=== PATIENT | female | born 1955 | race Caucasian/White ===

== ENCOUNTER 2016-12-19 18:02 | Emergency (ER) | payer OTHER ==
[~2016-12-19] VITALS: Ht 165.1 cm; Wt 64.8 kg
[~2016-12-19 18:02] MED LIST: DSY50 PO; FOLI1TAB7 PO; KLN5 PO; MRLP17 PO; MULT-506 PO; PARO30TA5 PO; THIA100T11 PO
[2016-12-19 18:09] VITALS: TEMP 36.9; Ht 165.1 cm; Wt 64.8 kg
[2016-12-19 18:51] LABS: URINE APPEARANCE CLEAR (CLEAR); URINE BILIRUBIN NEG (NEG); URINE COLOR YELLOW; URINE NITRITE NEG (NEG); URINE PH 6.5 (4.5-7.5); URINE SPECIFIC GRAVITY 1.011 (1.000-1.030); UROBILINOGEN NEG (NEG)
[2016-12-19 18:59] LABS: MANUAL MICROSCOPIC REQUIRED? YES; REVIEW REQ? NO
[2016-12-19 19:04] LABS: URINE BACTERIA NEG (NEG); URINE RBC 0-4 /hpf (0-4)
[2016-12-19 19:09] LABS: BENZODIAZEPINE, URINE NEG (NEG); COCAINE,URINE NEG (NEG); PHENCYCLIDINE, URINE NEG (NEG)
[2016-12-19 19:16] LABS: HEMATOCRIT 41.4 % (37-47); MEAN CELL VOLUME 83.5 fL (80-100); MEAN CORPUSCULAR HEMOGLOBIN 30.8 pg (25-34); MEAN PLATELET VOLUME 9.1 fL (7.4-10.4); PLATELET COUNT 281 K/uL (130-400); RED BLOOD COUNT 4.96 M/uL (4.2-5.4); WHITE BLOOD COUNT 10.85 K/uL (4.8-10.8)
[2016-12-19 19:35] LABS: BUN/CREATININE RATIO 5.1 (10-20); CREATININE 0.51 mg/dl (0.60-1.20); POTASSIUM 3.7 mmol/L (3.5-5.1)
[2016-12-19] MEDS ORDERED: QUET1TAB34 PO (19:44)
[2016-12-19 19:46] LABS: THYROID STIMULATING HORMONE 1.52 uIu/ml (0.300-4.500)
[2016-12-19 20:01] LABS: ACETAMINOPHEN < 2 ug/ml (10-30)
[2016-12-19] MEDS ORDERED: LISI-461 PO (20:27)
[2016-12-19] MEDS ORDERED: AMLO-110 PO (20:27)
[2016-12-19] MEDS ORDERED: PALI234I IM (20:27)
[2016-12-19] MEDS ORDERED: LEVO75TA5 PO (20:27)
[2016-12-19] MEDS ORDERED: ATV/1 PO (20:28)
[2016-12-19] MEDS ORDERED: QUET1TAB37 PO (20:28)
[2016-12-19] MEDS ORDERED: SERT50TA PO (20:28)
[2016-12-19] MEDS ORDERED: LORAZEPAM 1 MG TAB SL STA (20:44)
[2016-12-19 20:57] VITALS: BP 148/74; PULSE 82; O2SAT 94
--- NOTE | 2016-12-19 21:48 | EMERGENCY ROOM VISIT NOTE ---
History Report prepared by Asael: Evert Kendrick Under the Supervision of: Dr. Seth Strickland M.D. First contact with patient: 18:15 Chief Complaint: MENTAL HEALTH EVALUATION Stated Complaint: MENTAL HEALTH History of Present Illness The patient is a 61 year old female with a history of paranoid schizophrenia who presents to the Emergency Room with complaints of hearing voices that started prior to arrival. She has a history of hearing voices. The patient states that the voices are not telling her to do anything, but she is worried. She adds that she feels like she is dying and is currently starting to shake. The patient states that she has been trying to take her medications and take care of herself. History limited secondary to patient's psychosis. Source of History: patient History Limited By: other (psychosis) Onset: Prior to arrival Position: other (global - hearing voices) Quality: other (voices not telling her to do anything) Note: Associated symptoms: Says she is worried and currently starting to shake. Has been trying to take care of herself. Review of Systems ROS limited secondary to patient's psychosis. Past Medical & Surgical Medical Problems: (1) HTN (hypertension) (2) Hyponatremia (3) Hypothyroidism (4) Paranoid schizophrenia (5) past psyh meds (6) Poor dentition (7) Psychogenic polydipsia (8) Tobacco abuse Surgical Problems: (1) H/O eye surgery (2) History of tonsillectomy Family History Dyslipidemia FHx: heart disease FHx: hypertension FHx: seizures Social History Smoking Status: Current Every Day Smoker Alcohol Use: occasionally Marital Status: in relationship Housing Status: lives with significant other Occupation Status: disabled Current/Historical Medications Scheduled Amlodipine (Norvasc), 5 MG PO DAILY Levothyroxine Sodium (Levothyroxine Sodium), 1 TAB PO DAILY Lisinopril (Lisinopril), 10 MG PO DAILY Lorazepam (Ativan), 1 MG PO TID Paliperidone Palmitate (Invega Sustenna), 1 SYR IM MONTHLY Quetiapine Fumarate (Seroquel), 400 MG PO HS Sertraline (Zoloft), 50 MG PO DAILY Miscellaneous Medications Quetiapine Fumarate (Seroquel), 300 MG PO Allergies Coded Allergies: Penicillins (Verified Allergy, Unknown, 02/11/16) Physical Exam Vital Signs Date Time Temp Pulse Resp B/P (MAP) Pulse Ox O2 Delivery O2 Flow Rate FiO2 12/19/16 20:57 82 18 148/74 94 Room Air 12/19/16 19:23 84 18 133/72 98 Room Air 12/19/16 18:09 36.9 93 18 143/70 97 Room Air Physical Exam Constitutional: Vital signs reviewed. Eyes: Pupils are equal round reactive to light. Conjunctiva are noninjected. ENT: Pharynx is clear without erythema or exudate. Mucous membranes are moist. Neck supple without meningeal signs. Respiratory: Clear to auscultation bilaterally. Breath sounds are equal bilaterally. Cardiovascular: Regular rate and rhythm. No rubs or gallops. GI: Soft, nondistended and nontender. Bowel sounds are present. Musculoskeletal: No peripheral edema. No lower extremity tenderness. Integumentary: No cyanosis. Neurological: The patient is awake and alert. No focal deficits. Psychiatric: Anxious. At times is not verbal. Easily agitated. Medical Decision & Procedures Laboratory Results 12/19/16 18:55 12/19/16 18:55 Test 12/19/16 18:32 12/19/16 18:55 Urine Color YELLOW Urine Appearance CLEAR (CLEAR) Urine pH 6.5 (4.5-7.5) Urine Specific [place] 1.011 (1.000-1.030) Urine Protein NEG (NEG) Urine Glucose (UA) NEG (NEG) Urine Ketones TRACE (NEG) Urine Occult Blood NEG (NEG) Urine Nitrite NEG (NEG) Urine Bilirubin NEG (NEG) Urine Urobilinogen NEG (NEG) Urine Leukocyte Esterase SMALL (NEG) Urine WBC (Auto) /hpf (0-5) Urine RBC (Auto) /hpf (0-4) Urine Hyaline Casts (Auto) /lpf (0-5) Urine Epithelial Cells (Auto) /lpf (0-5) Urine Bacteria (Auto) (NEG) Urine RBC 0-4 /hpf (0-4) Urine WBC 5-10 /hpf (0-5) Urine Epithelial Cells 5-10 /lpf (0-5) Urine Bacteria NEG (NEG) Urine Opiates Screen NEG (NEG) Urine Methadone, Qualitative NEG (NEG) Urine Barbiturates NEG (NEG) Urine Phencyclidine (PCP) Level NEG (NEG) Ur Amphetamine/Methamphetamine NEG (NEG) MDMA (Ecstasy) Screen NEG (NEG) Urine Benzodiazepines Screen NEG (NEG) Urine Cocaine Metabolite NEG (NEG) Urine Marijuana (THC) NEG (NEG) Red Blood Count 4.96 M/uL (4.2-5.4) Mean Corpuscular Volume 83.5 fL (80-100) Mean Corpuscular Hemoglobin 30.8 pg (25-34) Mean Corpuscular Hemoglobin Concent 37.0 g/dl (32-36) RDW Standard Deviation 42.8 fL (36.4-46.3) RDW Coefficient of Variation 14.0 % (11.5-14.5) Mean Platelet Volume 9.1 fL (7.4-10.4) Anion Gap 10.0 mmol/L (3-11) Est Creatinine Clear Calc Drug Dose 105.6 ml/min Estimated GFR () 121.1 Estimated GFR (Non- 104.5 BUN/Creatinine Ratio 5.1 (10-20) Calcium Level 9.0 mg/dl (8.5-10.1) Total Bilirubin 0.5 mg/dl (0.2-1) Direct Bilirubin 0.1 mg/dl (0-0.2) Aspartate Amino Transf (AST/SGOT) 14 U/L (15-37) Alanine Aminotransferase (ALT/SGPT) 18 U/L (12-78) Alkaline Phosphatase 105 U/L (45-117) Total Protein 7.2 gm/dl (6.4-8.2) Albumin 3.8 gm/dl (3.4-5.0) Thyroid Stimulating Hormone (TSH) 1.520 uIu/ml (0.300-4.500) Salicylates Level 3.8 mg/dl (2.8-20) Acetaminophen Level < 2 ug/ml (10-30) Ethyl Alcohol mg/dL < 3.0 mg/dl (0-3) Laboratory results as reviewed by me. Medications Administered Medications (Trade) Dose Ordered Sig/Nella Route Start Time Stop Time Status Last Admin Dose Admin Lorazepam (Ativan Tab) 1 mg NOW STAT SL 12/19/16 20:44 12/19/16 20:45 DC 12/19/16 20:54 1 MG ED Course 1819: The patient was evaluated in room A8. A limited history and physical exam was performed. 2040: The patient has been evaluated by mental health, and is becoming more agitated, paranoid, delusional, and anxious. She is requesting Ativan. 2043: Ordered Ativan Tab 1 mg SL. Medical Decision This is a 61-year-old female who presents for mental health evaluation. I did perform a limited focused review of portions of the patient's old chart on the electronic medical record. The patient was seen here in January for hearing voices and not taking care of herself. She has a history of paranoid schizophrenia and was sent to the [facility] I did evaluate the patient as noted above. IV access was established. I did order and review the patient's blood work as noted in the electronic medical record. I did order a urinalysis. I did medically clear the patient. The patient was evaluated by the mental health tile professional. Bed search is underway for inpatient psychiatric care. The patient was signed out to Dr. Ponce. Medication Reconcilliation Current Medication List: was personally reviewed by me Blood Pressure Screening Patient's blood pressure: Elevated blood pressure Impression Primary Impression: Thought disorder Additional Impression: Paranoid schizophrenia Scribe Attestation The scribe's documentation has been prepared under my direct and personally reviewed by me in its entirety. I confirm that the note above accurately reflects all work, treatment, procedures, and medical decision making performed by me. Departure Information Dispostion Still a Patient Referrals Nima Ward M.D.([facility]) (PCP) Patient Instructions My [facility] Problem Qualifiers
--- NOTE | 2016-12-20 01:35 | EMERGENCY ROOM VISIT NOTE ---
ED Visit Note First contact with patient: 22:50 61 yr old female arrived earlier in evening and initially evaluated/medically cleared by Dr Strickland. She is acute paranoid schizophrenic who requires inpatient treatment. She was stable without complaints on my evaluation after she was signed out to me awaiting mental health placement as no beds here. She was accepted to [facility] for further treatment and evaluation.
== END 2016-12-20 02:47 ==
LOC: EDBD 18:02 → C.EDA 18:03
DX: F22 Delusional disorders (principal); F20.0 Paranoid schizophrenia; I10 Essential (primary) hypertension; E03.9 Hypothyroidism, unspecified; E87.1 Hypo-osmolality and hyponatremia; Z82.49 Family history of ischemic heart disease and other diseases of the circulatory system; F17.200 Nicotine dependence, unspecified, uncomplicated

== ENCOUNTER 2017-02-09 09:17 | Emergency (ER) | payer OTHER ==
[~2017-02-09] VITALS: Ht 165.1 cm; Wt 65.4 kg
[~2017-02-09 09:17] MED LIST changes: +AMLO-110 PO; +ATV/1 PO; -DSY50 PO; -FOLI1TAB7 PO; -KLN5 PO; +LEVO75TA5 PO; +LISI-461 PO; -MRLP17 PO; -MULT-506 PO; +PALI234I IM; -PARO30TA5 PO; +QUET1TAB34 PO; +QUET1TAB37 PO; +SERT50TA PO; -THIA100T11 PO
[2017-02-09 09:25] VITALS: Ht 165.1 cm; Wt 65.4 kg
[2017-02-09] MEDS ORDERED: DOCU-94 PO (10:14)
[2017-02-09] MEDS ORDERED: HYDR50CA2 PO (10:14)
[2017-02-09] MEDS ORDERED: PRAV20TA PO (10:14)
[2017-02-09 10:31] LABS: URINE APPEARANCE CLEAR (CLEAR); URINE BILIRUBIN NEG (NEG); URINE COLOR YELLOW; URINE NITRITE NEG (NEG); URINE SPECIFIC GRAVITY 1.013 (1.000-1.030); UROBILINOGEN NEG (NEG); ZZUR CULT IF INDIC CLEAN CATCH NO
[2017-02-09 10:35] LABS: MANUAL MICROSCOPIC REQUIRED? NO; REVIEW REQ? NO
--- NOTE | 2017-02-09 10:45 | EMERGENCY ROOM VISIT NOTE ---
History Report prepared by Asael: Meghan Woodson Under the Supervision of: Dr. Raleigh Thompson M.D. First contact with patient: 09:53 Chief Complaint: MENTAL HEALTH EVALUATION Stated Complaint: MEANTAL HEALTH History of Present Illness The patient is a 61 year old female who presents to the Emergency Room for a mental health evaluation. The patient was brought to the ED by BLS. Her pillowcase sewer called in to say that the patient has been having increased paranoia and auditory hallucinations. She has been hearing voices and thinks that people are trying to hurt her. She is having difficulty functioning in society. The patient admits to hearing voices she states that they are "very disturbing" and cause her to become "paralyzed with fear." She is voluntary at this time but states that she is afraid she is going to be accused of taking drugs or doing something that she didn't do. The patient was inpatient at [facility] for 20 days about 6 weeks ago. She states that her symptoms have been worsening since she was discharged from that facility. She thinks this is due to her Invega injections. The patient denies any SI or HI. The HPI is limited secondary to the patient's mental status. 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 Pt denies SI or HI. Review of Systems ROS is limited secondary to the patient's mental status. Past Medical & Surgical Medical Problems: (1) HTN (hypertension) (2) Hyponatremia (3) Hypothyroidism (4) Paranoid schizophrenia (5) past psyh meds (6) Poor dentition (7) Psychogenic polydipsia (8) Tobacco abuse Surgical Problems: (1) H/O eye surgery (2) History of tonsillectomy Family History Dyslipidemia FHx: heart disease FHx: hypertension FHx: seizures Social History Smoking Status: Heavy Tobacco Smoker Alcohol Use: occasionally Marital Status: in relationship Housing Status: lives with significant other Occupation Status: disabled Current/Historical Medications Scheduled Amlodipine (Norvasc), 2.5 MG PO DAILY Docusate Sodium (Colace), 1 CAP PO BID Hydroxyzine Pamoate (Vistaril), 50 MG PO HS Levothyroxine Sodium (Levothyroxine Sodium), 1 TAB PO DAILY Lisinopril (Lisinopril), 10 MG PO DAILY Lorazepam (Ativan), 1 MG PO TID Paliperidone Palmitate (Invega Sustenna), 1 SYR IM MONTHLY Pravastatin (Pravachol ), 40 MG PO DAILY Quetiapine Fumarate (Seroquel), 400 MG PO BID Sertraline (Zoloft), 50 MG PO DAILY Miscellaneous Medications Quetiapine Fumarate (Seroquel), 300 MG PO Allergies Coded Allergies: Penicillins (Verified Allergy, Unknown, 02/09/17) Physical Exam Vital Signs Date Time Temp Pulse Resp B/P (MAP) Pulse Ox O2 Delivery O2 Flow Rate FiO2 02/09/17 15:19 36.7 90 18 157/85 94 02/09/17 15:16 36.7 90 18 157/85 94 02/09/17 15:02 90 18 157/85 94 Room Air 02/09/17 11:58 95 20 147/86 96 Room Air 02/09/17 09:25 36.7 96 18 146/84 100 Room Air Physical Exam GENERAL: Patient is in no acute distress. HEENT: No acute trauma, normocephalic atraumatic, mucous membranes moist, no nasal congestion, no scleral icterus. NECK: No stridor, no adenopathy, no meningismus, trachea is midline. LUNGS: Clear to auscultation bilaterally, no wheeze, no rhonchi, breath sounds equal. HEART: Without murmurs gallops or rubs, regular rate and rhythm. ABDOMEN: Soft, nontender, bowel sounds positive, no hernias, no peritonitis. EXTREMITIES: No cyanosis or edema, full range of motion of all the joints without pain or difficulty, no signs for acute trauma. NEUROLOGIC: Oriented x 3, no acute motor or sensory deficits, no focal weakness. SKIN: No rash, no jaundice, no diaphoresis. PSYCH: Disorganized thought process, admits to hearing voices, denies being suicidal, currently voluntary. Medical Decision & Procedures Laboratory Results 02/09/17 10:47 02/09/17 10:47 Test 02/09/17 10:00 02/09/17 10:47 Urine Color YELLOW Urine Appearance CLEAR (CLEAR) Urine pH 7.0 (4.5-7.5) Urine Specific [place] 1.013 (1.000-1.030) Urine Protein NEG (NEG) Urine Glucose (UA) NEG (NEG) Urine Ketones NEG (NEG) Urine Occult Blood NEG (NEG) Urine Nitrite NEG (NEG) Urine Bilirubin NEG (NEG) Urine Urobilinogen NEG (NEG) Urine Leukocyte Esterase TRACE (NEG) Urine WBC (Auto) 0 /hpf (0-5) Urine RBC (Auto) 0-4 /hpf (0-4) Urine Hyaline Casts (Auto) 0 /lpf (0-5) Urine Epithelial Cells (Auto) 10-20 /lpf (0-5) Urine Bacteria (Auto) NEG (NEG) Urine Opiates Screen NEG (NEG) Urine Methadone, Qualitative NEG (NEG) Urine Barbiturates NEG (NEG) Urine Phencyclidine (PCP) Level NEG (NEG) Ur Amphetamine/Methamphetamine NEG (NEG) MDMA (Ecstasy) Screen NEG (NEG) Urine Benzodiazepines Screen NEG (NEG) Urine Cocaine Metabolite NEG (NEG) Urine Marijuana (THC) NEG (NEG) Red Blood Count 4.91 M/uL (4.2-5.4) Mean Corpuscular Volume 84.9 fL (80-100) Mean Corpuscular Hemoglobin 29.7 pg (25-34) Mean Corpuscular Hemoglobin Concent 35.0 g/dl (32-36) RDW Standard Deviation 46.6 fL (36.4-46.3) RDW Coefficient of Variation 15.1 % (11.5-14.5) Mean Platelet Volume 9.0 fL (7.4-10.4) Anion Gap 9.0 mmol/L (3-11) Est Creatinine Clear Calc Drug Dose 99.7 ml/min Estimated GFR () 118.9 Estimated GFR (Non- 102.6 BUN/Creatinine Ratio 10.5 (10-20) Calcium Level 9.2 mg/dl (8.5-10.1) Total Bilirubin 0.5 mg/dl (0.2-1) Aspartate Amino Transf (AST/SGOT) 9 U/L (15-37) Alanine Aminotransferase (ALT/SGPT) 17 U/L (12-78) Alkaline Phosphatase 115 U/L (45-117) Total Protein 7.7 gm/dl (6.4-8.2) Albumin 4.0 gm/dl (3.4-5.0) Globulin 3.7 gm/dl (2.5-4.0) Albumin/Globulin Ratio 1.1 (0.9-2) Thyroid Stimulating Hormone (TSH) 1.480 uIu/ml (0.300-4.500) Free Thyroxine 1.15 ng/dl (0.80-1.60) Ethyl Alcohol mg/dL < 3.0 mg/dl (0-3) Laboratory results reviewed by me. Medications Administered Medications (Trade) Dose Ordered Sig/Nella Route Start Time Stop Time Status Last Admin Dose Admin Lorazepam (Ativan Tab) 2 mg NOW STAT PO 02/09/17 11:41 02/09/17 11:43 DC 02/09/17 11:57 2 MG Hydroxyzine HCl (Vistaril Tab) 75 mg NOW STAT PO 02/09/17 14:29 02/09/17 14:30 DC 02/09/17 14:41 75 MG ED Course 0953: The patient was evaluated in room A7. A complete history and physical exam was performed. 1141: Ativan 2 mg PO 1413: The patient has been accepted to [place] [facility] for further management. She is in agreement with the treatment plan and will be transferred to their facility. Medical Decision Differential diagnoses includes psychosis, thought disorder, drug and alcohol abuse, infection, electrolyte imbalance. There is no leukocytosis or concerning anemia. No significant electrolyte abnormality, kidney failure or hepatitis. The patient appears to be in a euthyroid state. Urinalysis does not show infection. Urine tox is negative. Alcohol level is undetectable. The patient presents with hallucinations, anxiety. She has a difficult time focusing and things have been worsening for her over the last month or so. She is willing to stay in the hospital voluntarily. The patient was felt medically clear for a psychiatric evaluation. She was seen and has been accepted at [facility]. She is being transported to their facility. The paperwork was completed. During the patient's stay, she received oral Ativan and oral Vistaril. This has helped her anxiety. Medication Reconcilliation Current Medication List: was personally reviewed by me Blood Pressure Screening Patient's blood pressure: Elevated blood pressure Blood pressure disposition: Elevated BP felt to be situational Impression Primary Impression: Thought disorder Additional Impressions: Hallucinations Anxiety Scribe Attestation The scribe's documentation has been prepared under my direction and personally reviewed by me in its entirety. I confirm that the note above accurately reflects all work, treatment, procedures, and medical decision making performed by me. Departure Information Dispostion Transfer Acute Care Facility Referrals Nima Ward M.D.([facility]) (PCP) Patient Instructions My [facility] Problem Qualifiers
[2017-02-09 10:57] LABS: HEMATOCRIT 41.7 % (37-47); MEAN CELL VOLUME 84.9 fL (80-100); MEAN CORPUSCULAR HEMOGLOBIN 29.7 pg (25-34); PLATELET COUNT 309 K/uL (130-400); RED BLOOD COUNT 4.91 M/uL (4.2-5.4); WHITE BLOOD COUNT 8.75 K/uL (4.8-10.8)
[2017-02-09 10:58] LABS: BENZODIAZEPINE, URINE NEG (NEG); COCAINE,URINE NEG (NEG); PHENCYCLIDINE, URINE NEG (NEG)
[2017-02-09 11:19] LABS: BUN/CREATININE RATIO 10.5 (10-20); CALCIUM 9.2 mg/dl (8.5-10.1); CREATININE 0.54 mg/dl (0.60-1.20)
[2017-02-09 11:30] LABS: ALB/GLOB RATIO 1.1 (0.9-2); THYROID STIMULATING HORMONE 1.48 uIu/ml (0.300-4.500)
[2017-02-09] MEDS ORDERED: LORAZEPAM 2 MG TAB PO STA (11:35)
[2017-02-09] MEDS ORDERED: LORAZEPAM 1 MG TAB PO STA (11:41)
[2017-02-09] MEDS ORDERED: hydrOXYzine HCL 25 MG TAB PO STA (14:29)
[2017-02-09 15:19] VITALS: BP 157/85; PULSE 90; TEMP 36.7; O2SAT 94
== END 2017-02-09 15:18 | disposition short-term general hospital (02) ==
LOC: EDBD 09:17 → C.EDA 09:19
DX: F22 Delusional disorders (principal); R44.3 Hallucinations, unspecified; F41.9 Anxiety disorder, unspecified; I10 Essential (primary) hypertension; E87.1 Hypo-osmolality and hyponatremia; E03.9 Hypothyroidism, unspecified; F20.0 Paranoid schizophrenia; Z82.49 Family history of ischemic heart disease and other diseases of the circulatory system; Z72.0 Tobacco use; Z79.899 Other long term (current) drug therapy

== ENCOUNTER 2017-11-26 14:27 | Emergency (ER) | payer OTHER ==
[~2017-11-26] VITALS: Ht 167.6 cm; Wt 79.0 kg
[~2017-11-26 14:27] MED LIST changes: -AMLO-110 PO; +AMLO5TAB3 PO; +DOCU-94 PO; +HYDR50CA2 PO; +PRAV20TA PO
[2017-11-26 14:30] VITALS: TEMP 37.1; Ht 167.6 cm; Wt 79.0 kg
--- NOTE | 2017-11-26 14:46 | EMERGENCY ROOM VISIT NOTE ---
History Report prepared by Asael: Heather Bob Under the Supervision of: Dr. Wicho Bolaños M.D. First contact with patient: 14:31 Chief Complaint: MENTAL HEALTH EVALUATION Stated Complaint: MENTAL HEALTH History of Present Illness The patient is a 62 year old white female with an extensive past medical history of psychiatric problems who presents to the ED with a cc of persistent delusions beginning recently. Case management reports the patient is speaking to people who are not there and is unable to differentiate between reality and her delusions. They note she has had these symptoms many times in the past, but seems less able to differentiate form reality than usual. Case management also notes the patient has cloudy urine and may have a UTI. They report she is no longer taking care of herself, and has not bathed in 5 days. The patient denies suicidal or homicidal ideations. She states she does not know if she is seeing things that are not there. The patient says everybody thinks she's "nuts." She states she smokes and does not use drugs aside from her prescription medication. Source of History: patient, other (case management) Onset: recently Position: head Quality: other (delusions) Timing: other (persistent) Associated Symptoms: + urinary symptoms (cloudy urine) Note: Associated symptoms: unable to differentiate between delusions and reality, not taking care of herself Review of Systems See HPI for pertinent positives and negatives. A total of ten systems were reviewed and were otherwise negative. Past Medical & Surgical Medical Problems: (1) HTN (hypertension) (2) Hyponatremia (3) Hypothyroidism (4) Paranoid schizophrenia (5) past psyh meds (6) Poor dentition (7) Psychogenic polydipsia (8) Tobacco abuse Surgical Problems: (1) H/O eye surgery (2) History of tonsillectomy Family History Dyslipidemia FHx: heart disease FHx: hypertension FHx: seizures Social History Smoking Status: Heavy Tobacco Smoker Alcohol Use: occasionally Marital Status: in relationship Housing Status: lives with significant other Occupation Status: disabled Current/Historical Medications Scheduled Amlodipine (Norvasc), 2.5 MG PO DAILY Brexpiprazole (Rexulti), 4 MG PO DAILY Clonazepam (Klonopin), 0.5 MG PO BID Levothyroxine Sodium (Levothyroxine Sodium), 75 MCG PO DAILY Lisinopril (Lisinopril), 10 MG PO DAILY Quetiapine Fumarate (Seroquel), 300 MG PO BID Quetiapine Fumarate (Seroquel), 50 MG PO BID Miscellaneous Medications [Note] Allergies Coded Allergies: Penicillins (Verified Allergy, Unknown, 02/09/17) Physical Exam Vital Signs Date Time Temp Pulse Resp B/P (MAP) Pulse Ox O2 Delivery O2 Flow Rate FiO2 11/26/17 22:52 108 18 132/72 98 Room Air 11/26/17 14:30 37.1 79 20 140/77 96 Room Air Physical Exam GENERAL: Awake, alert, well-appearing, NAD, poor dentition. HENT: Normocephalic, atraumatic. EYES: Normal conjunctiva. Sclera non-icteric. PERRL. No anisocoria. NECK: Supple. No nuchal rigidity. FROM. RESPIRATORY: CTAB, no rhonchi, wheezing, crackles CARDIAC: RRR, no MRG ABDOMEN: Soft, NTND, BS+ MSK: No chest wall TTP, no LE edema NEURO: GCS 15, CN 2-12 intact, moves all 4s on command SKIN: No rash or jaundice noted. PSYCH: Delusions, no SI, no HI, positive AVH Medical Decision & Procedures Laboratory Results 11/26/17 15:27 Red Blood Count 5.07, Mean Corpuscular Volume 85.0, Mean Corpuscular Hemoglobin 29.2, Mean Corpuscular Hemoglobin Concent 34.3, Mean Platelet Volume 9.9, Neutrophils (%) (Auto) 69.5, Lymphocytes (%) (Auto) 17.5, Monocytes (%) (Auto) 10.4, Eosinophils (%) (Auto) 2.1, Basophils (%) (Auto) 0.1, Neutrophils # (Auto ) 7.30, Lymphocytes # (Auto) 1.84, Monocytes # (Auto) 1.09, Eosinophils # (Auto ) 0.22, Basophils # (Auto) 0.01 11/26/17 15:27 Test 11/26/17 15:19 11/26/17 15:27 Urine Color YELLOW Urine Appearance CLEAR (CLEAR) Urine pH 6.0 (4.5-7.5) Urine Specific [place] 1.014 (1.000-1.030) Urine Protein NEG (NEG) Urine Glucose (UA) NEG (NEG) Urine Ketones NEG (NEG) Urine Occult Blood NEG (NEG) Urine Nitrite NEG (NEG) Urine Bilirubin NEG (NEG) Urine Urobilinogen NEG (NEG) Urine Leukocyte Esterase MODERATE (NEG) Urine WBC (Auto) 10-30 /hpf (0-5) Urine RBC (Auto) 0-4 /hpf (0-4) Urine Hyaline Casts (Auto) 1-5 /lpf (0-5) Urine Epithelial Cells (Auto) 20-30 /lpf (0-5) Urine Bacteria (Auto) NEG (NEG) Urine Opiates Screen NEG (NEG) Urine Methadone, Qualitative NEG (NEG) Urine Barbiturates NEG (NEG) Urine Phencyclidine (PCP) Level NEG (NEG) Ur Amphetamine/Methamphetamine NEG (NEG) MDMA (Ecstasy) Screen NEG (NEG) Urine Benzodiazepines Screen NEG (NEG) Urine Cocaine Metabolite NEG (NEG) Urine Marijuana (THC) NEG (NEG) White Blood Count 10.50 K/uL (4.8-10.8) Red Blood Count 5.07 M/uL (4.2-5.4) Hemoglobin 14.8 g/dL (12.0-16.0) Hematocrit 43.1 % (37-47) Mean Corpuscular Volume 85.0 fL (80-100) Mean Corpuscular Hemoglobin 29.2 pg (25-34) Mean Corpuscular Hemoglobin Concent 34.3 g/dl (32-36) Platelet Count 306 K/uL (130-400) Mean Platelet Volume 9.9 fL (7.4-10.4) Neutrophils (%) (Auto) 69.5 % Lymphocytes (%) (Auto) 17.5 % Monocytes (%) (Auto) 10.4 % Eosinophils (%) (Auto) 2.1 % Basophils (%) (Auto) 0.1 % Neutrophils # (Auto) 7.30 K/uL (1.4-6.5) Lymphocytes # (Auto) 1.84 K/uL (1.2-3.4) Monocytes # (Auto) 1.09 K/uL (0.11-0.59) Eosinophils # (Auto) 0.22 K/uL (0-0.5) Basophils # (Auto) 0.01 K/uL (0-0.2) RDW Standard Deviation 48.6 fL (36.4-46.3) RDW Coefficient of Variation 15.7 % (11.5-14.5) Immature Granulocyte % (Auto) 0.4 % Immature Granulocyte # (Auto) 0.04 K/uL (0.00-0.02) Anion Gap 7.0 mmol/L (3-11) Est Creatinine Clear Calc Drug Dose 90.8 ml/min Estimated GFR () 108.9 Estimated GFR (Non- 94.0 BUN/Creatinine Ratio 20.2 (10-20) Calcium Level 9.3 mg/dl (8.5-10.1) Total Bilirubin 0.3 mg/dl (0.2-1) Direct Bilirubin 0.1 mg/dl (0-0.2) Aspartate Amino Transf (AST/SGOT) 13 U/L (15-37) Alanine Aminotransferase (ALT/SGPT) 20 U/L (12-78) Alkaline Phosphatase 100 U/L (45-117) Total Protein 7.8 gm/dl (6.4-8.2) Albumin 4.1 gm/dl (3.4-5.0) Thyroid Stimulating Hormone (TSH) 2.420 uIu/ml (0.300-4.500) Salicylates Level 3.4 mg/dl (2.8-20) Acetaminophen Level < 2 ug/ml (10-30) Ethyl Alcohol mg/dL < 3.0 mg/dl (0-3) ED Course 1443: The patient was evaluated in room A5. A complete history and physical exam was performed. Medical Decision Nursing notes reviewed. Ancillary studies and prior records reviewed. The patient is a 62 year old white female with an extensive past medical history of psychiatric problems who presents to the ED with a cc of persistent delusions beginning recently. Etiologies such as mood disorder, infection, hypoglycemia, electrolyte abnormalities, cardiac sources, intracerebral event, toxicologic, neurologic, as well as others were entertained. Patient was seen and evaluated the bedside. Patient was having some delusions. Patient was seen by can help with the patient would not allow can help to enter. There is concern that the patient does not have any true inside and is affecting her activities of daily living she is no longer bathing or doing appropriate things to complete her activities of daily living. Patient was seen and evaluated the psych case loader operator. Patient did have blood work completed along with urinalysis. The patient is medically clear. Patient was pending placement. Her 302 was signed and the patient was signed out to the nighttime physician Dr. Fraga pending placement. Patient was counseled on smoking cessation. Medication Reconcilliation Current Medication List: was personally reviewed by me Impression Primary Impression: Delusion Additional Impressions: Visual hallucination Auditory hallucinations Encounter for smoking cessation counseling Scribe Attestation The scribe's documentation has been prepared under my direction and personally reviewed by me in its entirety. I confirm that the note above accurately reflects all work, treatment, procedures, and medical decision making performed by me. Departure Information Dispostion Still a Patient Referrals Nima Ward M.D.([facility]) (PCP) Patient Instructions My [facility] Problem Qualifiers
[2017-11-26 15:42] LABS: BASO % 0.1 %; BASO ABS # 0.01 K/uL (0-0.2); EOS % 2.1 %; EOS ABS # 0.22 K/uL (0-0.5); HEMATOCRIT 43.1 % (37-47); HEMOGLOBIN 14.8 g/dL (12.0-16.0); IG# 0.04 K/uL (0.00-0.02); LYMPH % 17.5 %; LYMPH ABS # 1.84 K/uL (1.2-3.4); MEAN CORPUSCULAR HEMOGLOBIN 29.2 pg (25-34); MEAN CORPUSCULAR HGB CONC 34.3 g/dl (32-36); MEAN PLATELET VOLUME 9.9 fL (7.4-10.4); MONO % 10.4 %; MONO ABS # 1.09 K/uL (0.11-0.59); NEUT % 69.5 %; PLATELET COUNT 306 K/uL (130-400); RED CELL DISTRIBUTION WIDTH CV 15.7 % (11.5-14.5); RED CELL DISTRIBUTION WIDTH SD 48.6 fL (36.4-46.3)
[2017-11-26 16:18] LABS: CREATININE 0.69 mg/dl (0.60-1.20)
[2017-11-26 16:19] LABS: ALBUMIN 4.1 gm/dl (3.4-5.0); CALCIUM 9.3 mg/dl (8.5-10.1); POTASSIUM 4.1 mmol/L (3.5-5.1); TOTAL PROTEIN 7.8 gm/dl (6.4-8.2)
[2017-11-26] MEDS ORDERED: BREX1TAB6 PO (17:05)
[2017-11-26] MEDS ORDERED: CLON1TAB5 PO (17:07)
[2017-11-26] MEDS ORDERED: QUET1TAB32 PO (17:10)
[2017-11-26] MEDS ORDERED: NOTE (17:18)
--- NOTE | 2017-11-26 22:26 | EMERGENCY ROOM VISIT NOTE ---
ED Visit Note First contact with patient: 19:18 This patient was signed out to me by Dr. Bolaños. Dr. Bolaños did sign a 302 warrant for the patient. She was signed out to me pending mental health facility placement. She was accepted by the [facility] and transferred there by Renee.
[2017-11-26 22:52] VITALS: BP 132/72; PULSE 108; O2SAT 98
== END 2017-11-27 00:07 ==
LOC: EDBD 14:27 → C.EDA 14:29
DX: F22 Delusional disorders (principal); I10 Essential (primary) hypertension; E03.9 Hypothyroidism, unspecified; Z72.0 Tobacco use; Z79.899 Other long term (current) drug therapy; Z88.0 Allergy status to penicillin